=== PATIENT | female | born 1950 | race Caucasian/White ===

== ENCOUNTER 2020-07-21 18:38 | Emergency (ER) | payer MEDICARE ==
[~2020-07-21] VITALS: Ht 160 cm; Wt 107.4 kg
[2020-07-21] MEDS ORDERED: SODIUM CHLORIDE FLUSH 10ML SYR IVF ONE (19:30)
--- NOTE | 2020-07-21 19:42 | NUR ---
pt up to br with steady gait, no complaints at this time, pt prefers to sit in WC due to chronic back pain, vss awaiting ct scan
[2020-07-21 19:47] LABS: BASOPHILS # (AUTO) 0.07 x10^3/uL (0-0.1); BASOPHILS % (AUTO) 1 % (0-1); EOSINOPHILS # (AUTO) 0.56 x10^3/uL (0-0.4); EOSINOPHILS % (AUTO) 5 % (1-7); LYMPHOCYTES # (AUTO) 4.22 x10^3/uL (1-3.4); LYMPHOCYTES % (AUTO) 37 % (22-44); MD NO; MEAN CORPUSCULAR HEMOGLOBIN 31.2 pg (27.0-34.8); MEAN CORPUSCULAR HGB CONC 32.8 g/dL (32.4-35.8); MEAN CORPUSCULAR VOLUME 95.1 fL (80-100); MEAN PLATELET VOLUME 7.9 fL (7.4-10.4); MONOCYTES # (AUTO) 0.75 x10^3/uL (0.2-0.8); MONOCYTES % (AUTO) 7 % (2-9); NEUTROPHILS # (AUTO) 5.87 x10^3/uL (1.8-6.8); NEUTROPHILS % (AUTO) 51 % (42-75); PLATELET COUNT 317 x10^3/uL (130-400); RED BLOOD COUNT 4.78 x10^6/uL (3.82-5.3); RED CELL DISTRIBUTION WIDTH 13.5 % (9.6-15.2)
[2020-07-21 19:55] LABS: INTERNATIONAL NORMALIZED RATIO 0.98 (0.93-1.1); PROTHROMBIN TIME 10.1 Seconds (9.6-11.5)
[2020-07-21 20:05] LABS: ALANINE AMINOTRANSFERASE 29 U/L (12-78); ALBUMIN 4.1 g/dL (3.4-5.0); ANION GAP 9 mmol/L (5-15); CALCIUM 10.1 mg/dL (8.5-10.1); CHLORIDE 111 mmol/L (98-107); CREATININE 1.22 mg/dL (0.55-1.02)
[2020-07-21] MEDS ORDERED: LISI-170 PO (20:06)
[2020-07-21] MEDS ORDERED: AMLO10TA4 PO (20:06)
[2020-07-21] MEDS ORDERED: LEVO25TA68 PO (20:06)
[2020-07-21] MEDS ORDERED: GLIM1TAB7 PO (20:06)
[2020-07-21] MEDS ORDERED: ATOR40TA PO (20:06)
[2020-07-21 20:07] LABS: ALKALINE PHOSPHATASE 75 U/L (45-117); BILIRUBIN,TOTAL 0.4 mg/dL (0.2-1.0); TOTAL PROTEIN 8.5 g/dL (6.4-8.2)
[2020-07-21] MEDS ORDERED: OMNIPAQUE 350 MG/ML, 100ML BOTTLE ONE (20:35)
--- NOTE | 2020-07-21 20:48 | NUR ---
PT RETURNED FROM CT, RESTING IN CHAIR WITH NO COMPLAINTS, AWAITING SCAN RESULTS, VSS
[2020-07-21 20:55] VITALS: BP 136/77
[2020-07-21] MEDS ORDERED: OXYcodone/APAP 5/325MG TABLET ONE (21:47)
[2020-07-21] MEDS ORDERED: ONDANSETRON ODT 4 MG ONE (21:47)
[2020-07-21] MEDS ORDERED: OXYcodone/APAP 5/325MG TABLET PO ONE (22:00)
[2020-07-21] MEDS ORDERED: ONDANSETRON ODT 4 MG PO ONE (22:00)
== END 2020-07-21 22:10 | disposition home or self-care (01) ==
LOC: ED 19:04
DX: I71.4 Abdominal aortic aneurysm, without rupture (principal); M54.5 Low back pain; G89.29 Other chronic pain; I10 Essential (primary) hypertension; F17.290 Nicotine dependence, other tobacco product, uncomplicated
CPT/HCPCS: 36415; 71275; 74175; 80053; 85025; 85610; 85730; 93005; 99285; 99406; Q0162; Q9967